=== PATIENT | female | born 1970 | race Caucasian/White ===

== ENCOUNTER → 2017-03-25 | Outpatient (CLI) | payer OTHER | END | disposition home or self-care (01) | LOC: KCIC MRI 10:52 | DX: I77.1 Stricture of artery (principal); I10 Essential (primary) hypertension | CPT/HCPCS: 70544 ==

== ENCOUNTER → 2017-03-30 | Outpatient (CLI) | payer OTHER | END | disposition home or self-care (01) | LOC: SPEC 12:24 | DX: Z01.411 Encounter for gynecological examination (general) (routine) with abnormal findings (principal); N76.1 Subacute and chronic vaginitis | CPT/HCPCS: 88175 ==

== ENCOUNTER 2017-04-24 01:11 | Emergency (ER) | payer OTHER ==
[2017-04-24 01:37] LABS: ADD MAN DIFF? NO
[2017-04-24 01:39] LABS: BASO # 0.1 x10^3/uL (0.0-0.2); BASO % 1 % (0-3); EOS # 0.1 x10^3/uL (0.0-0.7); EOS % 1 % (0-3); HEMATOCRIT 39.8 % (36.0-47.0); HEMOGLOBIN 13.3 g/dL (12.0-15.5); LYMPH % 33 % (24-48); MEAN CORPUSCULAR HEMOGLOBIN 26 pg (25-35); MEAN CORPUSCULAR HGB CONC 33 g/dL (31-37); MEAN CORPUSCULAR VOLUME 77 fL (79-100); MONO # 0.7 x10^3/uL (0.0-1.1); MONO % 6 % (0-9); NEUT # 7.1 x10^3uL (1.8-7.7); NEUT % 60 % (31-73); PLATELET COUNT 369 x10^3/uL (140-400); RED BLOOD COUNT 5.15 x10^6/uL (3.50-5.40); RED CELL DISTRIBUTION WIDTH 14.4 % (11.5-14.5)
[2017-04-24 01:43] LABS: URINE HCG POC HCG NEGATIVE (Negative)
[2017-04-24 01:50] LABS: ANION GAP 10 (6-14); BLOOD UREA NITROGEN 13 mg/dL (7-20); BUN/CREATININE RATIO 19 (6-20); CALCIUM 10.4 mg/dL (8.5-10.1); CARBON DIOXIDE 28 mmol/L (21-32); CHLORIDE 101 mmol/L (98-107); CREATININE 0.7 mg/dL (0.6-1.0); GFR 90.9; GLUCOSE 114 mg/dL (70-99); POTASSIUM 3.7 mmol/L (3.5-5.1); SODIUM 139 mmol/L (136-145)
[2017-04-24 01:54] LABS: ALBUMIN 3.8 g/dL (3.4-5.0); ALK PHOS 71 U/L (46-116); ALT (SGPT) 21 U/L (14-59); AST (SGOT) 14 U/L (15-37); TOTAL BILIRUBIN 0.4 mg/dL (0.2-1.0); TOTAL PROTEIN 7.6 g/dL (6.4-8.2)
[2017-04-24] MEDS: diphenhydrAMINE 50 MG/ML VIAL IVP (02:11)
[2017-04-24] MEDS: METOCLOPRAMIDE 10 MG TABLET. PO (02:11)
[2017-04-24] MEDS: PROCHLORPERAZINE 10 MG/2 ML VIAL. IV (02:11)
[2017-04-24] MEDS: IV NORMAL SALINE 1000ML BAG 1,000 ML IV (02:12)
== END 2017-04-24 03:37 | disposition home or self-care (01) ==
LOC: ER 01:11
DX: G43.909 Migraine, unspecified, not intractable, without status migrainosus (principal); R07.89 Other chest pain; R42 Dizziness and giddiness; I10 Essential (primary) hypertension; Z88.8 Allergy status to other drugs, medicaments and biological substances
CPT/HCPCS: 36415; 80053; 81025; 85025; 93005; 96361; 96374; 96375; 99285-25; J0780; J1200; J2060; J7030; J8597

== ENCOUNTER → 2019-10-06 | Outpatient (CLI) | payer OTHER ==
[2017-04-24 03:30] VITALS: BP 129/79
[~2019-10-06] MED LIST: ALPR0.5T6 PO; BUDE10.2 IH; CARV12.5 PO; CETI10TA24 PO; DULO30CA2 PO; HYDR-3135 PO; ONDA4TAB7 PO; PANT40TA77 PO; SUMA100T3 PO
== END | disposition home or self-care (01) ==
LOC: LAB 14:37
PROVIDERS: ATTEND Internal Medicine Gastroenterology
DX: Z01.818 Encounter for other preprocedural examination (principal); Z11.59 Encounter for screening for other viral diseases; R10.13 Epigastric pain
CPT/HCPCS: U0003-CS

== ENCOUNTER → 2019-10-10 | Day surgery (SDC) | payer OTHER ==
--- NOTE | 2019-10-09 14:14 | PDOC4 ---
PROCEDURE Procedure Colon/EGD Indication: Epigastric pain, change in bowel habits. Meds: per anesthesia Findings: DENTON normal. --'Scope advanced to cecum. Mucosa normal. Prep good. 4-5 mm polyp, proximal ascending, biopsied off. No other lesions. E- Mostly-healed, probably at least grade B reflux at 40 cm. G--Mild striped erythema, antrum, biopsied. D--Normal to second portion. Nela. well. IMP: IBS GERD REC: continue PPI with AM dosing. Small fiber dose, titrated to best. Repeat colonoscopy 10 years. F/u in 2 weeks. ROCIO PA MD Oct 09, 2019 14:14
[2019-10-09 14:42] VITALS: BP 157/86
[~2019-10-10] MED LIST changes: +IV RINGERS,LACTATED 1000ML 1,000 ML IV SCH; +LIDOCAINE 2% PF 5 ML VIAL. ONE; +PROPOFOL 10 MG/ML (20ML) VIAL. IV ONE
--- NOTE | 2019-10-12 16:07 | PATHOLOGY ---
[facility] Accession Number: [id number] . 01 Material submitted: . PART A: stomach - ANTRAL BIOPSY PART B: colon - PROXIMAL ASCENDING COLON POLYP. Modifiers: proximal, ascending . 01 Clinical history: . REFLUX DYSPEPSIA, COLON SCREENING . 02 Diagnosis: A. Stomach "antrum", endoscopic biopsy: - Gastric antral and oxyntic mucosa with moderate chronic gastritis. - Negative for intestinal metaplasia, dysplasia, and malignancy. - POSITIVE for Helicobacter pylori organisms. . B. Large bowel "proximal ascending colon polyp", endoscopic biopsy: - Tubular adenoma; negative for high grade dysplasia and malignancy. (MLK/db; 10/12/2019) LBQ 10/12/2019 1451 Local . 02 Electronically signed: . Dharmesh Quevedo MD, Pathologist NPI- [id number] . 01 Gross description: . A. The specimen is received in formalin, labeled "Radha Mendence, antral biopsy". Received is a segment of pale bro soft tissue measuring 0.6 cm in maximum dimensions. The specimen is submitted entirely in cassette A1. . B. The specimen is received in formalin, labeled "Radha Mendence, proximal ascending polyp". Received is a segment of pale bro soft tissue measuring 1.0 cm in maximum dimensions. The specimen is submitted entirely in cassette B1. (CAA; 10/10/2019) QAC/QAC 10/10/2019 1639 Local . 02 Microscopic: . Immunohistochemical stain results (block A1) . - Helicobacter pylori - Positive for quincy-shaped organisms . 02 Pathologist provided ICD-10: K29.50, D12.2, B96.81 . 02 CPT . 229487, 228589, B51942 Specimen Comment: A courtesy copy of this report has been sent to [phone], [phone] Specimen Comment: [id number] Specimen Comment: Report sent to / DR GOYAL Performed at: 01 [place] [id number] [address] [id number] MD Luis Manuel Limon MD Phone: [phone] Performed at: 02 [facility] [address] [place], [place] [id number] MD Macario Zazueta MD Phone: [phone]
== END | disposition home or self-care (01) ==
LOC: ENDOS 09:32
PROVIDERS: ATTEND Internal Medicine Gastroenterology
DX: R19.4 Change in bowel habit (principal); D12.2 Benign neoplasm of ascending colon; I10 Essential (primary) hypertension; F41.9 Anxiety disorder, unspecified; F32.9 Major depressive disorder, single episode, unspecified; K21.0 Gastro-esophageal reflux disease with esophagitis; K31.89 Other diseases of stomach and duodenum; K58.9 Irritable bowel syndrome, unspecified; K29.50 Unspecified chronic gastritis without bleeding; Z98.890 Other specified postprocedural states; Z79.899 Other long term (current) drug therapy; Z88.8 Allergy status to other drugs, medicaments and biological substances
CPT/HCPCS: 43239; 45380; 81025; J2704